=== PATIENT | female | born 1990 | race Caucasian/White ===

== ENCOUNTER → 2016-12-27 | Outpatient (CLI) | payer OTHER ==
[2016-12-27 19:06] LABS: Basophils % (A) 0 %; CH 28.6; CHCM 32.5; Eosinophils # (A) 0.2 k/uL (0-0.7); Eosinophils % (A) 3 %; HCT 37.9 % (34.0-46.0); HDW 2.41; HGB 12.5 gm/dL (11.4-16.0); Luc # (Auto) 0.04; Luc % (Auto) 1; Lymphocytes # (A) 1.8 k/uL (1.0-4.8); Lymphocytes % (A) 32 %; MCH 29.3 pg (25.0-35.0); MCHC 33.1 g/dL (31.0-37.0); MCV 88.5 fL (80.0-100.0); Mean Platelet Volume 7.4; Monocytes # (A) 0.2 k/uL (0-1.0); Monocytes % (A) 4 %; Neutrophils # (A) 3.5 k/uL (1.3-7.7); Neutrophils % (A) 61 %; RBC 4.29 m/uL (3.80-5.40); RDW 12.6 % (11.5-15.5); WBC 5.8 k/uL (3.8-10.6); WBC (Perox) 5.94
[2016-12-27 19:07] LABS: ALT 22 U/L (9-52); AST 22 U/L (14-36); Alkaline Phosphatase 54 U/L (38-126); Anion Gap 12 mmol/L; Blood Urea Nitrogen 8 mg/dL (7-17); Carbon Dioxide 25 mmol/L (22-30); Chloride 105 mmol/L (98-107); Cholesterol 126 mg/dL (<200); Glucose 75 mg/dL (74-99); HDL Cholesterol 47 mg/dL (40-60); Non-African American GFR(MDRD) >60 (>60 ml/min/1.73 sqM); Potassium 3.6 mmol/L (3.5-5.1); Sodium 142 mmol/L (137-145); Total Bilirubin 0.7 mg/dL (0.2-1.3); Total Protein 6.7 g/dL (6.3-8.2); Triglycerides 110 mg/dL (<150)
== END ==
LOC: MMGSC 14:11
PROVIDERS: ATTEND Family Medicine
DX: Z00.00 Encounter for general adult medical examination without abnormal findings (principal)
CPT/HCPCS: 36415; 80053; 80061; 84439; 84443; 85025

== ENCOUNTER → 2017-01-24 | Outpatient (CLI) | payer OTHER | END | disposition home or self-care (01) | LOC: MMGSC 15:01 | PROVIDERS: ATTEND Family Medicine | DX: R53.83 Other fatigue (principal) | CPT/HCPCS: 36415; 82306; 82607 ==

== ENCOUNTER 2017-07-12 15:14 | Emergency (ER) | payer OTHER ==
[2017-07-12] MEDS ORDERED: ONDANSETRON 4 MG/2 ML VIAL IVP STA (15:56)
[2017-07-12] MEDS ORDERED: SODIUM CHLORIDE 0.9% 1,000 ML IV STA (15:56)
[2017-07-12] MEDS ORDERED: FAMOTIDINE 20 MG/2 ML VIAL IV STA (15:56)
--- NOTE | 2017-07-12 16:09 | ED ---
General Adult HPI - General Chief complaint: Nausea/Vomiting/Diarrhea Stated complaint: Vomiting Time Seen by Provider: 07/12/17 15:38 Source: patient, RN notes reviewed Mode of arrival: ambulatory Limitations: no limitations - History of Present Illness Initial comments: 27-year-old female presents to the emergency department with a chief complaint of nausea and vomiting. Patient has had this nausea vomiting on and off for the last 5 days. She was seen here for initially she states that she continues to have nausea vomiting. She does suffer from IBS. She states she has abdominal pain. She states she cannot even tolerate water. She states she has lost 13 pounds in the last 5 days. Patient states that she's never had anything this severe before. She does have a follow-up with GI and Sunday but she states that she does not know if she can always has with this. Patient was concerned due to the fact that her symptoms have not changed back and have not gotten any better so she thought that she should be seen. Patient denies any recent fever, chills, shortness of breath, chest pain, back pain, numbness or tingling, dysuria or hematuria, constipation or diarrhea, headaches or visual changes, or any other current symptoms. - Related Data Home Medications Medication Instructions Recorded Confirmed Ibuprofen [Motrin] 600 mg PO Q8HR PRN 07/07/17 07/12/17 clonazePAM [KlonoPIN] 1 mg PO DAILY PRN 07/07/17 07/12/17 hydrOXYzine HCL [Atarax] 25 mg PO TID PRN 07/07/17 07/12/17 buPROPion HCL [Wellbutrin XL] 150 mg PO DAILY 07/12/17 07/12/17 Previous Rx's Medication Instructions Recorded Ondansetron Odt [Zofran ODT] 4 mg PO Q8HR PRN #20 tab 07/12/17 Allergies Allergy/AdvReac Type Severity Reaction Status Date / Time Penicillins Allergy Anaphylaxis Verified 07/12/17 15:32 Review of Systems ROS Statement: Those systems with pertinent positive or pertinent negative responses have been documented in the HPI. ROS Other: All systems not noted in ROS Statement are negative. Past Medical History Past Medical History: Fibromyalgia History of Any Multi-Drug Resistant Organisms: None Reported Additional Past Surgical History / Comment(s): urical cyst Past Psychological History: Anxiety, Depression, PTSD Smoking Status: Never smoker Past Alcohol Use History: None Reported Past Drug Use History: Marijuana General Exam - General Exam Comments Initial Comments: General: The patient is awake and alert, in no distress, and does not appear acutely ill. Eye: Pupils are equal, round and reactive to light, extra-ocular movements are intact; there is normal conjunctiva bilaterally. No signs of icterus. Ears, nose, mouth and throat: There are moist mucous membranes. Neck: The neck is supple, there is no tenderness. Cardiovascular: There is a regular rate and rhythm. No murmur, rub or gallop is appreciated. Respiratory: Lungs are clear to auscultation, respirations are non-labored, breath sounds are equal. No wheezes, stridor, rales, or rhonchi. Gastrointestinal: Soft, non-distended, diffusely Gen. tenderness of the abdomen without masses or organomegaly noted. There is no rebound or guarding present. No CVA tenderness. Bowel sounds are unremarkable. Back: There is no tenderness to palpation in the midline. There is no obvious deformity. No rashes noted. Musculoskeletal: Normal ROM, no tenderness, There is no pedal edema. There is no calf tenderness or swelling. Sensation intact. Pulses equal bilaterally 2+. Neurological: CN II-XII intact, There are no obvious motor or sensory deficits. Coordination appears grossly intact. Speech is normal. Skin: Skin is warm and dry and no rashes or lesions are noted. Psychiatric: Cooperative, appropriate mood & affect, normal judgment. Limitations: no limitations Course Vital Signs 07/12/17 15:17 Temperature 97.7 F Pulse Rate 97 Respiratory 20 Rate Blood Pressure 102/59 O2 Sat by Pulse 100 Oximetry Medical Decision Making - Medical Decision Making 27 yo female presents for N/V. This time lab work and imaging has been reviewed. At this time we discussed the patient Zofran for home. We discussed follow-up return parameters questions. Patient stated that she sugars have been answered. She'll be discharged home. - Lab Data Result diagrams: 07/12/17 16:19 07/12/17 16:19 Lab Results 07/12/17 07/12/17 07/12/17 Range/Units 16:16 16:16 16:19 WBC (3.8-10.6) k/uL RBC (3.80-5.40) m/uL Hgb (11.4-16.0) gm/dL Hct (34.0-46.0) % MCV (80.0-100.0) fL MCH (25.0-35.0) pg MCHC (31.0-37.0) g/dL RDW (11.5-15.5) % Plt Count (150-450) k/uL Neutrophils % % Lymphocytes % % Monocytes % % Eosinophils % % Basophils % % Neutrophils # (1.3-7.7) k/uL Lymphocytes # (1.0-4.8) k/uL Monocytes # (0-1.0) k/uL Eosinophils # (0-0.7) k/uL Basophils # (0-0.2) k/uL Sodium 142 (137-145) mmol/L Potassium 3.8 (3.5-5.1) mmol/L Chloride 104 (98-107) mmol/L Carbon Dioxide 25 (22-30) mmol/L Anion Gap 13 mmol/L BUN 12 (7-17) mg/dL Creatinine 0.75 (0.52-1.04) mg/dL Est GFR (MDRD) Af Amer >60 (>60 ml/min/1.73 sqM) Est GFR (MDRD) Non-Af >60 (>60 ml/min/1.73 sqM) Glucose 86 (74-99) mg/dL Calcium 9.9 (8.4-10.2) mg/dL Total Bilirubin 0.8 (0.2-1.3) mg/dL AST 30 (14-36) U/L ALT 42 (9-52) U/L Alkaline Phosphatase 55 (38-126) U/L Total Protein 8.7 H (6.3-8.2) g/dL Albumin 5.2 H (3.5-5.0) g/dL Amylase <30 L (30-110) U/L Lipase 74 (23-300) U/L Urine Color Yellow Urine Appearance Cloudy H (Clear) Urine pH 6.0 (5.0-8.0) Ur Specific [place] 1.016 (1.001-1.035) Urine Protein Trace H (Negative) Urine Glucose (UA) Negative (Negative) Urine Ketones 1+ H (Negative) Urine Blood Small H (Negative) Urine Nitrite Negative (Negative) Urine Bilirubin Negative (Negative) Urine Urobilinogen <2.0 (<2.0) mg/dL Ur Leukocyte Esterase Large H (Negative) Urine RBC 4 (0-5) /hpf Urine WBC 88 H (0-5) /hpf Ur Squamous Epith Cells 2 (0-4) /hpf Urine Bacteria Rare H (None) /hpf Urine Mucus Few H (None) /hpf Urine HCG, Qual Not Detected (Not Detectd) 07/12/17 Range/Units 16:19 WBC 6.8 (3.8-10.6) k/uL RBC 4.88 (3.80-5.40) m/uL Hgb 13.8 (11.4-16.0) gm/dL Hct 41.9 (34.0-46.0) % MCV 85.8 (80.0-100.0) fL MCH 28.3 (25.0-35.0) pg MCHC 33.0 (31.0-37.0) g/dL RDW 14.0 (11.5-15.5) % Plt Count 359 (150-450) k/uL Neutrophils % 61 % Lymphocytes % 32 % Monocytes % 4 % Eosinophils % 1 % Basophils % 1 % Neutrophils # 4.1 (1.3-7.7) k/uL Lymphocytes # 2.2 (1.0-4.8) k/uL Monocytes # 0.3 (0-1.0) k/uL Eosinophils # 0.1 (0-0.7) k/uL Basophils # 0.0 (0-0.2) k/uL Sodium (137-145) mmol/L Potassium (3.5-5.1) mmol/L Chloride (98-107) mmol/L Carbon Dioxide (22-30) mmol/L Anion Gap mmol/L BUN (7-17) mg/dL Creatinine (0.52-1.04) mg/dL Est GFR (MDRD) Af Amer (>60 ml/min/1.73 sqM) Est GFR (MDRD) Non-Af (>60 ml/min/1.73 sqM) Glucose (74-99) mg/dL Calcium (8.4-10.2) mg/dL Total Bilirubin (0.2-1.3) mg/dL AST (14-36) U/L ALT (9-52) U/L Alkaline Phosphatase (38-126) U/L Total Protein (6.3-8.2) g/dL Albumin (3.5-5.0) g/dL Amylase (30-110) U/L Lipase (23-300) U/L Urine Color Urine Appearance (Clear) Urine pH (5.0-8.0) Ur Specific [place] (1.001-1.035) Urine Protein (Negative) Urine Glucose (UA) (Negative) Urine Ketones (Negative) Urine Blood (Negative) Urine Nitrite (Negative) Urine Bilirubin (Negative) Urine Urobilinogen (<2.0) mg/dL Ur Leukocyte Esterase (Negative) Urine RBC (0-5) /hpf Urine WBC (0-5) /hpf Ur Squamous Epith Cells (0-4) /hpf Urine Bacteria (None) /hpf Urine Mucus (None) /hpf Urine HCG, Qual (Not Detectd) - Radiology Data Radiology results: report reviewed, image reviewed Disposition Clinical Impression: Abdominal pain, Nausea & vomiting Disposition: HOME SELF-CARE Condition: Stable Instructions: Abdominal Pain (ED) Additional Instructions: Please use medication as discussed. Please follow up with family doctor if symptoms have not improved over the next two days. Please return to the emergency room if your symptoms increase or worsen or for any other concerns. Please follow up as discussed. Prescriptions: Ondansetron Odt [Zofran ODT] 4 mg PO Q8HR PRN #20 tab PRN Reason: Nausea Referrals: Lyric Dong MD [Primary Care Provider] - 1-2 days Time of Disposition: 17:50
[2017-07-12 16:29] LABS: Appearance,Urine Cloudy (Clear); Bacteria,Urine Rare /hpf; Bilirubin,Urine Negative (Negative); Glucose,Urine (UA) Negative (Negative); Ketones,Urine 1+ (Negative); Leukocyte Esterase,Urine Large (Negative); Mucus,Urine Few /hpf; Nitrite,Urine Negative (Negative); Particle Count 5671; Protein,Urine Trace (Negative); RBC,Urine 4 /hpf (0-5); Specific Gravity,Urine 1.016 (1.001-1.035); Squamous Epithelial Cell,Urine 2 /hpf (0-4); UA Billing (MACRO vs. MICRO) MICRO; Urobilinogen,Urine <2.0 mg/dL (<2.0); WBC,Urine 88 /hpf (0-5)
[2017-07-12 16:36] LABS: Basophils % (A) 1 %; CHCM 32.8; Eosinophils # (A) 0.1 k/uL (0-0.7); Eosinophils % (A) 1 %; HCT 41.9 % (34.0-46.0); HDW 2.28; HGB 13.8 gm/dL (11.4-16.0); Luc # (Auto) 0.09; Luc % (Auto) 1; Lymphocytes # (A) 2.2 k/uL (1.0-4.8); Lymphocytes % (A) 32 %; MCH 28.3 pg (25.0-35.0); MCV 85.8 fL (80.0-100.0); Mean Platelet Volume 7.4; Monocytes # (A) 0.3 k/uL (0-1.0); Monocytes % (A) 4 %; Neutrophils # (A) 4.1 k/uL (1.3-7.7); Neutrophils % (A) 61 %; RBC 4.88 m/uL (3.80-5.40); WBC 6.8 k/uL (3.8-10.6); WBC (Perox) 6.81
[2017-07-12 16:59] LABS: ALT 42 U/L (9-52); AST 30 U/L (14-36); Alkaline Phosphatase 55 U/L (38-126); Amylase <30 U/L (30-110); Anion Gap 13 mmol/L; Blood Urea Nitrogen 12 mg/dL (7-17); Calcium 9.9 mg/dL (8.4-10.2); Carbon Dioxide 25 mmol/L (22-30); Chloride 104 mmol/L (98-107); Glucose 86 mg/dL (74-99); Non-African American GFR(MDRD) >60 (>60 ml/min/1.73 sqM); Potassium 3.8 mmol/L (3.5-5.1); Sodium 142 mmol/L (137-145); Total Bilirubin 0.8 mg/dL (0.2-1.3); Total Protein 8.7 g/dL (6.3-8.2)
--- NOTE | 2017-07-12 17:08 | US ---
EXAMINATION TYPE: US gallbladder DATE OF EXAM: 07/12/2017 COMPARISON: NONE CLINICAL HISTORY: Pain. vomiting and abd pain EXAM MEASUREMENTS: Liver Length: 12.3 cm Gallbladder Wall: 0.2 cm CBD: 0.3 cm Right Kidney: 10.0 x 4.4 x 3.9 cm Pancreas: tail obscured by bowel gas Liver: 1.9cm hyperechoic lesion left lobe probable hemangioma Gallbladder: wnl Evidence for sonographic De Los Santos's sign: no CBD: wnl Right Kidney: wnl IMPRESSION: There is evidence of a hemangioma in the left lobe of the liver. No gallstones or dilated ducts.
[2017-07-12 18:28] VITALS: BP 155/83; PULSE 90; RESP 16; TEMP 97.8
== END 2017-07-12 18:39 | disposition home or self-care (01) ==
LOC: EC 15:14
DX: R10.9 Unspecified abdominal pain (principal); R11.2 Nausea with vomiting, unspecified; F32.9 Major depressive disorder, single episode, unspecified; Z79.899 Other long term (current) drug therapy; Z88.0 Allergy status to penicillin
CPT/HCPCS: 99284; 96374; 96375; 36415; 80053; 82150; 83690; 85025; 81001; 81025; 76705; J2405

== ENCOUNTER 2017-08-01 08:08 | Day surgery (SDC) | payer OTHER ==
[2017-07-31 10:58] VITALS: BMI 29.5
[~2017-08-01 08:08] MED LIST: LACTATED RINGERS 1,000 ML IV SCH; LIDOCAINE 1% 20 ML VIAL (10MG/ML) FOR IV START INTRADERMA PRN
[2017-08-01 08:51] VITALS: RESP 16; TEMP 98.2
[2017-08-01] MEDS ORDERED: LIDOCAINE 1% INJ 10MG/ML (20 ML MDV) ONE (09:04)
[2017-08-01] MEDS ORDERED: PROPOFOL 10 MG/ML 20 ML VIAL IV ONE (09:04)
--- NOTE | 2017-08-01 09:21 | P.PCN ---
Date of Procedure: 08/01/17 Procedure(s) Performed: Brief history: Patient is a pleasant 27-year-old white female,scheduled for an elective upper endoscopy as well as colonoscopy as a part of evaluation of abdominal pain, abdominal distention, alternating diarrhea and constipation with intermittent rectal bleeding for the last 2 months duration. She lost 15 pounds since onset of the symptoms. Procedure performed: Esophagogastroduodenoscopy with biopsy Colonoscopy with biopsy Preoperative diagnosis: abdominal pain/abdominal distention Change in bowel habits and intermittent rectal bleeding Anesthesia: MAC Procedure: After informed consent was obtained from the patient was brought into the endoscopy unit and IV sedation was administered by anesthesia under continuous monitoring. Initially upper endoscopy was done. The Olympus GF 160 video endoscope was inserted inserted into the mouth and esophagus intubated without any difficulty and was gradually advanced into the stomach and duodenum and carefully examined. The bulb and second part of the duodenum appeared normal.biopsies were done from the duodenum to rule out celiac disease. The scope was then withdrawn into the stomach adequately insufflated with air and upon careful examination the antrum had mild patchy areas of erythema and biopsies were done from this area. The body, cardia and fundus appeared normal. The scope was then withdrawn into the esophagus. The GE junction was located at 40 cm to the incisors. It appeared regular with no erythema erosions or ulcerations. Rest of the esophagus appeared normal. Patient tolerated the procedure well. At this time the patient continued to remain sedation. Initial digital rectal examination was normal. Olympus CF 160 video colonoscope was then inserted into the rectum and gradually advanced to the cecum without any difficulty. Careful examination was performed as the scope was gradually being withdrawn. The prep was excellent. Terminal ileum was intubated and 20 cm visualized and appeared normal. The cecum, ascending colon, transverse colon, descending colon , sigmoid colon and rectum appeared normal. random biopsies were done from ascending and descending colon to rule out microscopic/collagenous colitis. Retroflexion was performed in the rectum and no lesions were noted. Patient tolerated the procedure well. Impression: 1.Upper endoscopy revealed minimal antral gastritis but no evidence of esophagitis or peptic ulcer 2.Colonoscopy was essentially within normal limits with no evidence of colitis or colorectal neoplasia Recommendations: Findings of this examination were discussed with the patient as well as her family. She was advised to follow with the biopsy results. She will be seen in office in 2-3 weeks.
[2017-08-01 09:49] VITALS: BP 111/72; PULSE 79
== END 2017-08-01 10:03 | disposition home or self-care (01) ==
LOC: ORWHC2ENDO 08:08
PROVIDERS: ATTEND Internal Medicine Gastroenterology
DX: R19.7 Diarrhea, unspecified (principal); K62.5 Hemorrhage of anus and rectum; K29.50 Unspecified chronic gastritis without bleeding; K59.00 Constipation, unspecified; K21.9 Gastro-esophageal reflux disease without esophagitis; Z88.0 Allergy status to penicillin; Z79.899 Other long term (current) drug therapy
CPT/HCPCS: 43239; 45380; 81025; 88305; 88342; J2001; J2704

== ENCOUNTER → 2017-08-03 | Outpatient (CLI) | payer OTHER | END | disposition home or self-care (01) | LOC: MMGSC 16:09 | PROVIDERS: ATTEND Family Medicine | DX: R30.0 Dysuria (principal) | CPT/HCPCS: 87086 ==

== ENCOUNTER 2017-11-10 21:37 | Emergency (ER) | payer OTHER ==
[2017-11-10 21:51] VITALS: RESP 18
[2017-11-10] MEDS ORDERED: TOPICAL SKIN ADHESIVE 1 EACH AMP TOPICAL ONE (22:21)
[2017-11-10] MEDS ORDERED: ONDANSETRON ODT 4 MG TAB PO STA (23:15)
--- NOTE | 2017-11-10 23:18 | ED ---
General Adult HPI - General Chief complaint: Psychiatric Symptoms Stated complaint: Suicidal Time Seen by Provider: 11/10/17 21:40 Source: EMS, RN notes reviewed, old records reviewed Mode of arrival: EMS Limitations: no limitations - History of Present Illness Initial comments: This is a 27-year-old female to ER for evaluation today. Patient's presenting for evaluation regards to suicidal thoughts and ideation. Patient typical eyeglasses multiple cuts over her body. Patient states she had any difficulty with boyfriend tonight and became very suicidal and said. She has positive EtOH , no prior history of similar complaint - Related Data Home Medications Medication Instructions Recorded Confirmed hydrOXYzine HCL [Atarax] 25 mg PO TID PRN 07/07/17 08/01/17 buPROPion HCL [Wellbutrin XL] 150 mg PO DAILY 07/12/17 08/01/17 Allergies Allergy/AdvReac Type Severity Reaction Status Date / Time Penicillins Allergy Anaphylaxis Verified 08/01/17 08:55 Review of Systems ROS Statement: Those systems with pertinent positive or pertinent negative responses have been documented in the HPI. ROS Other: All systems not noted in ROS Statement are negative. Past Medical History Past Medical History: Fibromyalgia Additional Past Medical History / Comment(s): STATES HAVING BLOATING, CRAMPS DIARRHEA AND RECTAL BLEEDING., FREQUENT UTI'S. History of Any Multi-Drug Resistant Organisms: None Reported Additional Past Surgical History / Comment(s): EXPLORATORY WITH REMOVAL OF URACHAL CYST. (JANUARY 2015) Past Anesthesia/Blood Transfusion Reactions: No Reported Reaction, Motion Sickness Past Psychological History: Anxiety, Depression, PTSD Smoking Status: Never smoker Past Alcohol Use History: None Reported Past Drug Use History: Marijuana - Past Family History Mother Family Medical History: No Reported History Additional Family Medical History / Comment(s): GRANDFATHER= COLON CANCER General Exam - General Exam Comments Initial Comments: Multiple small lacerations, they are located on hands, forearms, leg Limitations: no limitations General appearance: alert, in no apparent distress Head exam: Present: atraumatic, normocephalic, normal inspection Eye exam: Present: normal appearance, PERRL, EOMI. Absent: scleral icterus, conjunctival injection, periorbital swelling ENT exam: Present: normal exam, mucous membranes moist Neck exam: Present: normal inspection. Absent: tenderness, meningismus, lymphadenopathy Respiratory exam: Present: normal lung sounds bilaterally. Absent: respiratory distress, wheezes, rales, rhonchi, stridor Cardiovascular Exam: Present: regular rate, normal rhythm, normal heart sounds. Absent: systolic murmur, diastolic murmur, rubs, gallop, clicks GI/Abdominal exam: Present: soft, normal bowel sounds. Absent: distended, tenderness, guarding, rebound, rigid Extremities exam: Present: normal inspection, full ROM, normal capillary refill. Absent: tenderness, pedal edema, joint swelling, calf tenderness Back exam: Present: normal inspection Neurological exam: Present: alert, oriented X3, CN II-XII intact Psychiatric exam: Present: normal affect, normal mood Skin exam: Present: warm, dry, intact, normal color. Absent: rash Course Vital Signs 11/10/17 11/11/17 11/11/17 21:41 00:24 01:11 Temperature 98.9 F Pulse Rate 84 78 74 Respiratory 18 18 18 Rate Blood Pressure 120/68 118/59 118/59 O2 Sat by Pulse 98 96 100 Oximetry 11/11/17 03:41 Temperature 97.7 F Pulse Rate 72 Respiratory 18 Rate Blood Pressure 119/69 O2 Sat by Pulse 98 Oximetry - Reevaluation(s) Reevaluation #1: 11/10/17 23:18 No need for laceration repair, patient's lacerations are cleaned Reevaluation #2: 11/10/17 23:18 Patient is medically clear for psychiatric evaluation Medical Decision Making - Medical Decision Making 27 female the ER for evaluation by psychiatry, patient seen and evaluated with psychiatry patient can be discharged home Disposition Clinical Impression: Acute anxiety, Alcohol abuse Disposition: HOME SELF-CARE Condition: Good Instructions: Anxiety (ED) Referrals: Lyric Dong MD [Primary Care Provider] - 1-2 days
[2017-11-11] MEDS ORDERED: LORazepam 1 MG TAB PO STA (00:12)
[2017-11-11] MEDS ORDERED: LORazepam 2 MG/ML INJ IM STA (00:12)
--- NOTE | 2017-11-11 01:37 | CT ---
EXAMINATION TYPE: CT brain wo con DATE OF EXAM: 11/11/2017 COMPARISON: NONE HISTORY: shaking, vomiting headache CT DLP: 1014.40 mGycm. Automated Exposure Control for Dose Reduction was Utilized. TECHNIQUE: CT scan of the head is performed without contrast. FINDINGS: Ventricles and sulci appear normal. There is no mass effect nor midline shift. There is n o sign of intracranial hemorrhage. The calvarium appears normal. There is mild mucosal thickening in the ethmoid sinuses. The cerebellar tonsils project slightly into the foramen magnum. CONCLUSION: No acute intracranial abnormality. Mild Chiari malformation of the cerebellum. Mild ethmoid sinusitis .
[2017-11-11 03:43] VITALS: BP 119/69; PULSE 72; TEMP 97.7
== END 2017-11-11 03:54 | disposition home or self-care (01) ==
LOC: EC 21:37
DX: S61.412A Laceration without foreign body of left hand, initial encounter (principal); S61.411A Laceration without foreign body of right hand, initial encounter; S51.812A Laceration without foreign body of left forearm, initial encounter; S51.811A Laceration without foreign body of right forearm, initial encounter; S81.819A Laceration without foreign body, unspecified lower leg, initial encounter; F41.9 Anxiety disorder, unspecified; F10.10 Alcohol abuse, uncomplicated; F43.10 Post-traumatic stress disorder, unspecified; F32.9 Major depressive disorder, single episode, unspecified; Z79.899 Other long term (current) drug therapy; Z88.0 Allergy status to penicillin; W25.XXXA Contact with sharp glass, initial encounter; Y92.89 Other specified places as the place of occurrence of the external cause
CPT/HCPCS: 82075; 70450; 99285; 96372; J2060

== ENCOUNTER 2019-09-28 13:38 | Emergency (ER) | payer OTHER ==
[2019-09-28 13:57] VITALS: BP 122/73; PULSE 87; RESP 18; TEMP 98.5
[2019-09-28 15:13] LABS: Basophils # (A) 0.1 k/uL (0-0.2); Basophils % (A) 1 %; Eosinophils # (A) 0.1 k/uL (0-0.7); Eosinophils % (A) 1 %; HCT 38.1 % (34.0-46.0); HGB 12.4 gm/dL (11.4-16.0); Lymphocytes # (A) 1.7 k/uL (1.0-4.8); Lymphocytes % (A) 28 %; MCH 28.6 pg (25.0-35.0); MCHC 32.7 g/dL (31.0-37.0); MCV 87.5 fL (80.0-100.0); Mean Platelet Volume 7.5; Monocytes # (A) 0.3 k/uL (0-1.0); Monocytes % (A) 5 %; Neutrophils # (A) 3.9 k/uL (1.3-7.7); Neutrophils % (A) 63 %; Platelet Count 261 k/uL (150-450); RBC 4.35 m/uL (3.80-5.40); RDW 12.4 % (11.5-15.5); WBC 6.2 k/uL (3.8-10.6)
[2019-09-28 15:18] LABS: Appearance,Urine Clear (Clear); Bacteria,Urine Rare /hpf; Bilirubin,Urine Negative (Negative); Blood,Urine Moderate (Negative); Color,Urine Yellow; Glucose,Urine (UA) Negative (Negative); Ketones,Urine Trace (Negative); Leukocyte Esterase,Urine Negative (Negative); Mucus,Urine Moderate /hpf; Nitrite,Urine Negative (Negative); PH, Urine 6.5 (5.0-8.0); Protein,Urine 1+ (Negative); RBC,Urine 8 /hpf (0-5); Specific Gravity,Urine 1.029 (1.001-1.035); Squamous Epithelial Cell,Urine 1 /hpf (0-4); Urobilinogen,Urine <2.0 mg/dL (<2.0); WBC,Urine 2 /hpf (0-5)
--- NOTE | 2019-09-28 15:19 | ED ---
Recheck HPI - General Chief Complaint: Recheck/Abnormal Lab/Rx Stated Complaint: Fibromyalgia/need med refill Time Seen by Provider: 09/28/19 14:07 Source: patient Mode of arrival: ambulatory Limitations: no limitations - History of Present Illness Initial Comments: 29-year-old female presenting for multiple complaints. Patient states that she is out of her Seroquel which she has been increasing the amount she has been taking because of stressful situations. Patient states that she has history of PTSD and depression. She states that she has had increasing suicidal ideations wtih no plan-she states since she was in the service these have been chronic thoughts. Denies homicidal ideation. Patient states she feels overall very stressed out she states is making her nauseated and had vomiting she states this typically happens when she has increased life stressors. Patient denies any physical abuse. She states she wants something for the nausea. Denie , stating that she recently began her period and she feels this is compounding her anxiety and stress because she has PMDD. Ptient denies abdominal pain, chest pain, SOB. Patient denies dysuria, urgency, frequency. Patient denies attempt of suicide. Patient states she needed a medications refill and thats why she presented to the ER. - Related Data Home Medications Medication Instructions Recorded Confirmed hydrOXYzine HCL [Atarax] 25 mg PO TID PRN 07/07/17 08/01/17 buPROPion HCL [Wellbutrin XL] 150 mg PO DAILY 07/12/17 08/01/17 Allergies Allergy/AdvReac Type Severity Reaction Status Date / Time Penicillins Allergy Anaphylaxis Verified 09/28/19 13:57 Review of Systems ROS Statement: Those systems with pertinent positive or pertinent negative responses have been documented in the HPI. ROS Other: All systems not noted in ROS Statement are negative. Past Medical History Past Medical History: Fibromyalgia Additional Past Medical History / Comment(s): STATES HAVING BLOATING, CRAMPS DIARRHEA AND RECTAL BLEEDING., FREQUENT UTI'S. History of Any Multi-Drug Resistant Organisms: None Reported Additional Past Surgical History / Comment(s): EXPLORATORY WITH REMOVAL OF URACHAL CYST. (JANUARY 2015) Past Anesthesia/Blood Transfusion Reactions: No Reported Reaction, Motion Sickness Past Psychological History: Anxiety, Depression, PTSD Smoking Status: Current every day smoker Past Alcohol Use History: None Reported Past Drug Use History: Marijuana - Past Family History Mother Family Medical History: No Reported History Additional Family Medical History / Comment(s): GRANDFATHER= COLON CANCER General Exam - General Exam Comments Initial Comments: General: The patient is awake and alert, in no distress Eye: +3 mm pupils are equal, round and reactive to light, extra-ocular movements are intact. No nystagmus. There is normal conjunctiva bilaterally. No signs of icterus. Ears, nose, mouth and throat: There are moist mucous membranes and no oral lesions. Neck: The neck is supple, there is no tenderness or JVD. Cardiovascular: There is a regular rate and rhythm. No murmur, rub or gallop is appreciated. Respiratory: Lungs are clear to auscultation, respirations are non-labored, breath sounds are equal. No wheezes, stridor, rales, or rhonchi. Gastrointestinal: Soft, non-distended, non-tender abdomen without masses or organomegaly noted. There is no rebound or guarding present. Musculoskeletal: Normal ROM, no tenderness. Strength 5/5. Sensation intact. Radial pulses equal bilaterally 2+. Neurological: A&O x 3. CN II-XII intact grossly, There are no obvious motor or sensory deficits. Coordination appears grossly intact. Speech is normal. Skin: Skin is warm and dry and no rashes or lesions are noted. Psychiatric: Rapid speech, flat affect Limitations: no limitations Course Vital Signs 09/28/19 13:53 Temperature 98.5 F Pulse Rate 87 Respiratory 18 Rate Blood Pressure 122/73 O2 Sat by Pulse 99 Oximetry Medical Decision Making - Medical Decision Making 29-year-old female presenting for medication refill of Seroquel. Patient states she was prescribed the non-extended release formula. Patient states she needs extended release. She also noted in history taking that she had suicidal ideation she states are chronic. Patient is was evaluated urinalysis and basic lab study patient was medically clear for EPS evaluation who recommended discharge. Patient states she is comfortable discharge she was provided resources for psychiatric services. Patient denies any current suicidal ideations. Patient was instructed to f/u with PCP for medication refills. Patient discharged with return parameters, sfety plan and resources. - Lab Data Result diagrams: 09/28/19 15:00 09/28/19 15:00 Lab Results 01/26/20 01/26/20 01/26/20 Range/Units 15:00 15:00 15:00 WBC 6.2 (3.8-10.6) k/uL RBC 4.35 (3.80-5.40) m/uL Hgb 12.4 (11.4-16.0) gm/dL Hct 38.1 (34.0-46.0) % MCV 87.5 (80.0-100.0) fL MCH 28.6 (25.0-35.0) pg MCHC 32.7 (31.0-37.0) g/dL RDW 12.4 (11.5-15.5) % Plt Count 261 (150-450) k/uL Neutrophils % 63 % Lymphocytes % 28 % Monocytes % 5 % Eosinophils % 1 % Basophils % 1 % Neutrophils # 3.9 (1.3-7.7) k/uL Lymphocytes # 1.7 (1.0-4.8) k/uL Monocytes # 0.3 (0-1.0) k/uL Eosinophils # 0.1 (0-0.7) k/uL Basophils # 0.1 (0-0.2) k/uL Sodium 141 (137-145) mmol/L Potassium 4.2 (3.5-5.1) mmol/L Chloride 106 (98-107) mmol/L Carbon Dioxide 26 (22-30) mmol/L Anion Gap 9 mmol/L BUN 14 (7-17) mg/dL Creatinine 0.65 (0.52-1.04) mg/dL Est GFR (CKD-EPI)AfAm >90 (>60 ml/min/1.73 sqM) Est GFR (CKD-EPI)NonAf >90 (>60 ml/min/1.73 sqM) Glucose 95 (74-99) mg/dL Calcium 9.4 (8.4-10.2) mg/dL Total Bilirubin 0.9 (0.2-1.3) mg/dL AST 27 (14-36) U/L ALT 20 (4-34) U/L Alkaline Phosphatase 61 (38-126) U/L Total Protein 7.3 (6.3-8.2) g/dL Albumin 4.6 (3.5-5.0) g/dL Urine Color Urine Appearance (Clear) Urine pH (5.0-8.0) Ur Specific [place] (1.001-1.035) Urine Protein (Negative) Urine Glucose (UA) (Negative) Urine Ketones (Negative) Urine Blood (Negative) Urine Nitrite (Negative) Urine Bilirubin (Negative) Urine Urobilinogen (<2.0) mg/dL Ur Leukocyte Esterase (Negative) Urine RBC (0-5) /hpf Urine WBC (0-5) /hpf Ur Squamous Epith Cells (0-4) /hpf Urine Bacteria (None) /hpf Urine Mucus (None) /hpf Urine HCG, Qual Not Detected (Not Detectd) Urine Opiates Screen (NotDetected) Ur Oxycodone Screen (NotDetected) Urine Methadone Screen (NotDetected) Ur Propoxyphene Screen (NotDetected) Ur Barbiturates Screen (NotDetected) U Tricyclic Antidepress (NotDetected) Ur Phencyclidine Scrn (NotDetected) Ur Amphetamines Screen (NotDetected) U Methamphetamines Scrn (NotDetected) U Benzodiazepines Scrn (NotDetected) Urine Cocaine Screen (NotDetected) U Marijuana (THC) Screen (NotDetected) 09/28/19 Range/Units 15:00 WBC (3.8-10.6) k/uL RBC (3.80-5.40) m/uL Hgb (11.4-16.0) gm/dL Hct (34.0-46.0) % MCV (80.0-100.0) fL MCH (25.0-35.0) pg MCHC (31.0-37.0) g/dL RDW (11.5-15.5) % Plt Count (150-450) k/uL Neutrophils % % Lymphocytes % % Monocytes % % Eosinophils % % Basophils % % Neutrophils # (1.3-7.7) k/uL Lymphocytes # (1.0-4.8) k/uL Monocytes # (0-1.0) k/uL Eosinophils # (0-0.7) k/uL Basophils # (0-0.2) k/uL Sodium (137-145) mmol/L Potassium (3.5-5.1) mmol/L Chloride (98-107) mmol/L Carbon Dioxide (22-30) mmol/L Anion Gap mmol/L BUN (7-17) mg/dL Creatinine (0.52-1.04) mg/dL Est GFR (CKD-EPI)AfAm (>60 ml/min/1.73 sqM) Est GFR (CKD-EPI)NonAf (>60 ml/min/1.73 sqM) Glucose (74-99) mg/dL Calcium (8.4-10.2) mg/dL Total Bilirubin (0.2-1.3) mg/dL AST (14-36) U/L ALT (4-34) U/L Alkaline Phosphatase (38-126) U/L Total Protein (6.3-8.2) g/dL Albumin (3.5-5.0) g/dL Urine Color Yellow Urine Appearance Clear (Clear) Urine pH 6.5 (5.0-8.0) Ur Specific [place] 1.029 (1.001-1.035) Urine Protein 1+ H (Negative) Urine Glucose (UA) Negative (Negative) Urine Ketones Trace H (Negative) Urine Blood Moderate H (Negative) Urine Nitrite Negative (Negative) Urine Bilirubin Negative (Negative) Urine Urobilinogen <2.0 (<2.0) mg/dL Ur Leukocyte Esterase Negative (Negative) Urine RBC 8 H (0-5) /hpf Urine WBC 2 (0-5) /hpf Ur Squamous Epith Cells 1 (0-4) /hpf Urine Bacteria Rare H (None) /hpf Urine Mucus Moderate H (None) /hpf Urine HCG, Qual (Not Detectd) Urine Opiates Screen Not Detected (NotDetected) Ur Oxycodone Screen Not Detected (NotDetected) Urine Methadone Screen Not Detected (NotDetected) Ur Propoxyphene Screen Not Detected (NotDetected) Ur Barbiturates Screen Not Detected (NotDetected) U Tricyclic Antidepress Detected H (NotDetected) Ur Phencyclidine Scrn Not Detected (NotDetected) Ur Amphetamines Screen Not Detected (NotDetected) U Methamphetamines Scrn Not Detected (NotDetected) U Benzodiazepines Scrn Not Detected (NotDetected) Urine Cocaine Screen Not Detected (NotDetected) U Marijuana (THC) Screen Detected H (NotDetected) Disposition Clinical Impression: Chronic depression, History of posttraumatic stress disorder (PTSD), Medication refill Disposition: HOME SELF-CARE Condition: Good Instructions (If sedation given, give patient instructions): Depression (ED), Help Prevent Suicide (ED) Additional Instructions: Please use medication as discussed. Please follow-up with family doctor in the next 2 days. Please return to emergency room if the symptoms increase or worsen or for any other concerns. Is patient prescribed a controlled substance at d/c from ED?: No Referrals: Lyric Dong MD [Primary Care Provider] - 1-2 days Time of Disposition: 16:49
[2019-09-28 15:22] LABS: ALT 20 U/L (4-34); AST 27 U/L (14-36); African American GFR (CKD) >90 (>60 ml/min/1.73 sqM); Albumin 4.6 g/dL (3.5-5.0); Alkaline Phosphatase 61 U/L (38-126); Anion Gap 9 mmol/L; Blood Urea Nitrogen 14 mg/dL (7-17); Calcium 9.4 mg/dL (8.4-10.2); Carbon Dioxide 26 mmol/L (22-30); Chloride 106 mmol/L (98-107); Glucose 95 mg/dL (74-99); Non-African American GFR(CKD) >90 (>60 ml/min/1.73 sqM); Potassium 4.2 mmol/L (3.5-5.1); Sodium 141 mmol/L (137-145); Total Bilirubin 0.9 mg/dL (0.2-1.3); Total Protein 7.3 g/dL (6.3-8.2)
[2019-09-28 15:44] LABS: Amphetamine Screen,Urine Not Detected (NotDetected); Barbiturate Screen,Urine Not Detected (NotDetected); Benzodiazepines Screen,Urine Not Detected (NotDetected); Cocaine Screen,Urine Not Detected (NotDetected); Methadone Screen, Urine Not Detected (NotDetected); Opiate Screen,Urine Not Detected (NotDetected); Oxycodone Screen, Urine Not Detected (NotDetected); Phencyclidine Screen,Urine Not Detected (NotDetected); Tricyclic Antidepressant,Urine Detected (NotDetected); Urn Cannabinoid Scrn Detected (NotDetected)
== END 2019-09-28 17:03 | disposition home or self-care (01) ==
LOC: EC 13:38
DX: F32.9 Major depressive disorder, single episode, unspecified (principal); F17.200 Nicotine dependence, unspecified, uncomplicated; Z76.0 Encounter for issue of repeat prescription; Z79.899 Other long term (current) drug therapy; Z88.0 Allergy status to penicillin; Z86.59 Personal history of other mental and behavioral disorders
CPT/HCPCS: 36415; 80053; 80306; 81001; 81025; 82075; 85025; 99284

== ENCOUNTER → 2020-09-08 | Outpatient (CLI) | payer OTHER ==
--- NOTE | 2020-09-08 15:54 | US ---
EXAMINATION TYPE: Transabdominal DATE OF EXAM: 09/08/2020 3:43 PM COMPARISON: NONE CLINICAL HISTORY: Z36 Encounter for screening of mother. Dates positive hCG test. EXAM PERFORMED: Transabdominal (TA) EXAM MEASUREMENTS: GESTATIONAL AGE / DATING Physician Established: Not yet established ( Dates by LMP: 06/28/2020 (10 weeks/2 days) EDC: 04/04/2021 Dates by First Scan: No previous this is first scan Dates by Current Scan for: (9 weeks/3 days) EDC: 04/10/2021 MATERNAL ANATOMY Uterus: 12.2 x 5.0 x 7.5 cm Right Ovary: 2.8 x 2.0 x 1.7 cm Left Ovary: 3.1 x 2.1 x 2.2 cm Post CDS / Adnexa: wnl Presence of free fluid: wnl Presence of corpus luteal cyst: no Presence of subchorionic bleed: no GESTATION / SURVEY CRL: 2.63 cm (9 weeks/3 days) Yolk Sac (normal less than 6mm): 5 mm Heart Rate: 179 bpm Rhythm: Normal IUP: Viable IUP Beta HcG (if available): Not available at this time Single live intrauterine gestation as gestational sac, yolk sac, and pole are confirmed. No ana cristina e fluid in pelvic cul-de-sac. Both ovaries are present. No suspicious extraovarian adnexal lesion. IMPRESSION: Single live intrauterine gestation, mean crown-rump length 2.6 cm corresponding to 9 week 3 day old fetus.
[2020-09-08 16:08] LABS: HCT 33.4 % (34.0-46.0); HGB 11.7 gm/dL (11.4-16.0); MCH 30.5 pg (25.0-35.0); MCV 87.3 fL (80.0-100.0); Mean Platelet Volume 7.7; Platelet Count 295 k/uL (150-450); RBC 3.83 m/uL (3.80-5.40)
[2020-09-08 16:15] LABS: African American GFR (CKD) >90 (>60 ml/min/1.73 sqM); Glucose 78 mg/dL (74-99); Non-African American GFR(CKD) >90 (>60 ml/min/1.73 sqM)
[2020-09-09 01:12] LABS: HIV 2 AB Non-Reactive (Non-Reactive); HIV AB P24 Non-Reactive (Non-Reactive); HIV P24 AG Non-Reactive (Non-Reactive)
== END | disposition home or self-care (01) ==
LOC: RADUSWWP 15:24
PROVIDERS: ATTEND Obstetrics & Gynecology
DX: Z36.89 Encounter for other specified antenatal screening (principal); O26.811 Pregnancy related exhaustion and fatigue, first trimester; Z3A.09 9 weeks gestation of pregnancy
CPT/HCPCS: 36415; 76801; 82565; 82947; 85027; 86850; 86900; 86901; 87390

== ENCOUNTER → 2020-11-11 | Outpatient (CLI) | payer OTHER ==
--- NOTE | 2020-11-11 14:53 | US ---
EXAMINATION TYPE: US OB anatomy transabd DATE OF EXAM: 11/11/2020 COMPARISON: 09/08/2020 HISTORY: O36.62X0 Large for dates 2nd trimester TECHNIQUE: Transabdominal (TA) EXAM MEASUREMENTS: GESTATIONAL AGE / DATING Physician Established: (19 weeks/3 days) EDC: 04/04/2021 Dates by LMP: (19 weeks/3 days) EDC: 04/04/2021 Dates by First Scan: (18 weeks/4 days) EDC: 04/10/2021 Dates by Current Scan for: (18 weeks/6 days) EDC: 04/08/2021 SURVEY IUP: Single PLACENTA: Anterior PREVIA: No previa KWAME: 13.0 cm Normal CERVICAL LENGTH (transabdominal: norm > 3.0cm): 3.8 cm BIOMETRY PRESENTATION: Breech LIE: Longitudinal BPD: 4.3 cm 19 weeks / 0 days HC: 16.3 cm 19 weeks / 1 days AC: 12.6 cm 18 weeks / 2 days FL: 2.8 cm 18 weeks / 4 days ESTIMATED WEIGHT IN GRAMS: 241 grams ESTIMATED WEIGHT IN LBS/OZ: 0 lbs. 9 oz. WEIGHT PERCENTAGE BASED ON ESTABLISHED DATE: 7 % HC/AC: 1.29 Abnormal FL/AC: 22% HEART RATE: 153 bpm RHYTHM: Normal ANATOMY SEEN (within normal limits): * Lateral Vent (< 1 cm) 0.8 cm * Cisterna Magna (< 1.1 cm) 0.4 cm * Nuchal Fold (< 0.6 cm) 0.4 cm * Cerebellum (varies with age) 1.9 cm Choroid Plexus (bilateral) Midline Falx Cavus Septi Pellucidi Four Chamber Heart Outflow tracts: LVOT/RVOT Stomach Situs Nose / Lips Diaphragm Kidneys (bilateral) Bladder Cord Insert Three Vessel Cord Arms (bilateral) Legs (bilateral) ANATOMY NOT SEEN: Longitudinal Spine Transverse Spine Viable single IUP measuring 18 weeks 6 days with a heart rate of 153bpm and an estimated delivery hyun e of 04/08/2021. Patient being made an OB Callback to return for anatomy not seen on today's exam. IMPRESSION: Viable intrauterine of 18 weeks 6 days with a heart rate of 153 bpm. The patient should ret urn for areas of anatomy that were not visualized on today's exam due to early gestational age.
== END ==
LOC: RADUSWWP 13:25
PROVIDERS: ATTEND Obstetrics & Gynecology
DX: O36.62X0 Maternal care for excessive fetal growth, second trimester, not applicable or unspecified (principal); Z3A.18 18 weeks gestation of pregnancy
CPT/HCPCS: 76811

== ENCOUNTER → 2020-12-06 | Outpatient (CLI) | payer OTHER ==
--- NOTE | 2020-12-06 15:50 | US ---
EXAMINATION TYPE: US OB Call Back DATE OF EXAM: 12/06/2020 COMPARISON: Original survey 11/11/[address] 07/07/2017. CLINICAL HISTORY: 30-year-old female OB CALL BACK. Spine images needed. TECHNIQUE: Multiple transabdominal sonographic images were obtained. FINDINGS: GESTATIONAL AGE / DATING Dates by Initial Survey Scan: (23 weeks/0 days) EDC: 04/04/2021 HEART RATE: 134 bpm RHYTHM: Normal ANATOMY SEEN (second anatomic survey look): Longitudinal Spine: wnl Transverse Spine: wnl [place] notes: After multiple attempts and having mother roll, move around room, etc, images of f etal spine were acquired Some of the survey images of 11/11/2020 are reviewed. There is a rounded masslike area that seem s to be located along the lower uterine segment measuring 4.2 x 3.8 x 3.3 cm. Review of the patient's 07/07/2017 CT shows an enhancing round 1.4 cm lesion along the left lower uterine segment. An enlargi ng fibroid is suspected. One-month follow-up recommended to reassess. IMPRESSION: 1. Rescan from the patient's 11/11/2020 survey shows a normal spine. 2. A 4.2 cm round mass along the lower uterine segment suspected to represent a fibroid. Patient's 17 CT showed a 1.4 cm enhancing lesion, likely a fibroid along the left lower uterine segment. Four-w [place] follow-up ultrasound recommended to reassess any potential further growth of the suspected lower uterine segment fibroid.
== END | disposition home or self-care (01) ==
LOC: RADUSWWP 14:45
PROVIDERS: ATTEND Obstetrics & Gynecology
DX: Z53.9 Procedure and treatment not carried out, unspecified reason (principal)

== ENCOUNTER → 2021-03-11 | Outpatient (CLI) | payer OTHER | END | disposition home or self-care (01) ==

== ENCOUNTER 2021-04-03 15:55 | Inpatient (IN) | payer OTHER ==
[2021-04-03] MEDS ORDERED: TERBUTALINE 1 MG/ML VIAL SQ PRN (16:12)
[2021-04-03] MEDS ORDERED: METHYLERGONOVINE 0.2 MG/ML 1 ML AMP IM PRN (16:12)
[2021-04-03] MEDS ORDERED: OXYTOCIN 10 UNIT/ML 1 ML VIAL IM PRN (16:12)
[2021-04-03] MEDS ORDERED: LIDOCAINE 0.5% (PF) 5 MG/ML (50 ML SDV) SQ PRN (16:12)
[2021-04-03] MEDS ORDERED: CARBOPROST TROMETHAMINE 250 MCG/ML 1 ML AMP IM PRN (16:12)
[2021-04-03] MEDS ORDERED: DINOPROSTONE 10 MG INSERT.ER VAGINAL ONE (16:30)
[2021-04-03] MEDS: LACTATED RINGERS 1,000 ML IV SCH (18:20)
[2021-04-04] MEDS: LACTATED RINGERS 1,000 ML IV SCH ×4 (00:53→13:24)
[2021-04-04] MEDS: BUTORPHANOL 1 MG/ML 1 ML VIAL IV PRN ×4 (01:00→07:57)
[2021-04-04 01:32] LABS: Basophils % (A) 0 %; Eosinophils % (A) 1 %; HCT 32.3 % (34.0-46.0); HGB 10.7 gm/dL (11.4-16.0); Hypochromasia Slight; Lymphocytes # (A) 1.7 k/uL (1.0-4.8); Lymphocytes % (A) 25 %; MCH 26.9 pg (25.0-35.0); MCV 81.4 fL (80.0-100.0); Mean Platelet Volume 8.7; Monocytes # (A) 0.5 k/uL (0-1.0); Monocytes % (A) 8 %; Neutrophils # (A) 4.2 k/uL (1.3-7.7); Neutrophils % (A) 63 %; Platelet Count 305 k/uL (150-450); Poikilocytosis Slight; RBC 3.97 m/uL (3.80-5.40); RDW 14.6 % (11.5-15.5); WBC 6.7 k/uL (3.8-10.6)
[2021-04-04] MEDS ORDERED: OXYTOCIN 30 UNITS/500 ML NS 30 UNIT in SALINE 1 500ML.BAG IV SCH ×2 (05:15→15:00)
[2021-04-04] MEDS ORDERED: fentaNYL (PF) 50 MCG/ML 5 ML AMP ONE (08:54)
[2021-04-04] MEDS ORDERED: ROPIVACAINE 5MG/ML 20ML VIAL ONE (08:54)
[2021-04-04] MEDS ORDERED: SODIUM CHLORIDE 0.9% 100 ML BAG ONE (08:54)
[2021-04-04] MEDS ORDERED: CITRIC ACID-SODIUM CITRATE 15 ML CUP PO ONE (14:18)
[2021-04-04] MEDS ORDERED: MORPHINE SULFATE (PF) 0.3 MG/0.3 ML SYR ONE (14:28)
[2021-04-04] MEDS ORDERED: ONDANSETRON 4 MG/2 ML VIAL ONE (14:28)
[2021-04-04] MEDS ORDERED: KETOROLAC 15 MG/ML 1 ML VIAL ONE (14:28)
[2021-04-04] MEDS ORDERED: METOCLOPRAMIDE 5 MG/ML 2 ML VIAL IVP PRN (14:57)
[2021-04-04] MEDS ORDERED: LANOLIN CREAM 5 GM TUBE TOPICAL PRN (14:57)
[2021-04-04] MEDS ORDERED: ONDANSETRON 4 MG/2 ML VIAL IVP PRN (14:57)
[2021-04-04] MEDS ORDERED: NALOXONE 0.4 MG/ML 1 ML VIAL IV PRN (14:57)
[2021-04-04] MEDS ORDERED: diphenhydrAMINE 25 MG CAP PO PRN (14:57)
[2021-04-04] MEDS ORDERED: ZOLPIDEM 5 MG TAB PO PRN (14:57)
[2021-04-04] MEDS ORDERED: diphenhydrAMINE 50 MG/ML 1 ML VIAL IVP PRN ×2 (14:57)
[2021-04-04] MEDS ORDERED: SIMETHICONE 80 MG CHEWABLE PO PRN (14:57)
[2021-04-04] MEDS ORDERED: diphenhydrAMINE 50 MG CAP PO PRN (14:57)
[2021-04-04] MEDS: SENNOSIDES-DOCUSATE SODIUM 1 EACH TAB PO SCH (21:14)
[2021-04-05] MEDS ORDERED: KETOROLAC 15 MG/ML 1 ML VIAL IVP SCH
[2021-04-05] MEDS: IBUPROFEN 600 MG TAB PO SCH ×4 (05:03→19:11)
--- NOTE | 2021-04-05 05:08 | P.HPOB ---
History of Present Illness H&P Date: 04/03/21 Chief Complaint: induction of labor 30 years old presents at 39 weeks 6 days for induction of labor. Her cervix is closed/60/-2 and she is edy irregularly. heart tones 140 with moderate variability. Review of Systems All systems: negative Constitutional: Denies chills, Denies fever Eyes: denies blurred vision, denies pain Ears, nose, mouth and throat: Denies headache, Denies sore throat Cardiovascular: Denies chest pain, Denies shortness of breath Respiratory: Denies cough Gastrointestinal: Denies abdominal pain, Denies diarrhea, Denies nausea, Denies vomiting Genitourinary: Denies dysuria, Denies hematuria Musculoskeletal: Denies myalgias Integumentary: Denies pruritus, Denies rash Neurological: Denies numbness, Denies weakness Psychiatric: Denies anxiety, Denies depression Endocrine: Denies fatigue, Denies weight change Past Medical History Past Medical History: Fibromyalgia Additional Past Medical History / Comment(s): STATES HAVING BLOATING, CRAMPS DIARRHEA AND RECTAL BLEEDING., FREQUENT UTI'S. History of Any Multi-Drug Resistant Organisms: None Reported Additional Past Surgical History / Comment(s): EXPLORATORY WITH REMOVAL OF URACHAL CYST. (JANUARY 2015) Past Anesthesia/Blood Transfusion Reactions: No Reported Reaction, Motion Sickness Past Psychological History: Anxiety, Depression, PTSD Smoking Status: Never smoker Past Alcohol Use History: None Reported Past Drug Use History: Marijuana Additional Drug Use History / Comment(s): DENIES CURRENT MARIJUANA USE. - Past Family History Mother Family Medical History: No Reported History Additional Family Medical History / Comment(s): GRANDFATHER= COLON CANCER Medications and Allergies Home Medications Medication Instructions Recorded Confirmed Type 78/Iron/Folate 1/Dha 1 cap PO DAILY 04/03/21 04/03/21 History [Prenate Dha Softgel] Allergies Allergy/AdvReac Type Severity Reaction Status Date / Time Penicillins Allergy Anaphylaxis Verified 04/03/21 16:10 Exam Osteopathic Statement: *. No significant issues noted on an osteopathic structural exam other than those noted in the History and Physical/Consult. Vital Signs Temp Pulse Resp BP Pulse Ox 04/04/21 20:27 98.0 F 83 16 113/73 04/04/21 17:00 69 16 102/60 100 04/04/21 16:30 97.4 F L 66 16 101/58 100 04/04/21 16:00 63 16 100/60 100 04/04/21 15:58 16 04/04/21 15:45 86 16 92/57 100 04/04/21 15:30 93 16 114/54 100 04/04/21 15:15 90 16 97/52 99 04/04/21 15:00 97.4 F L 96 16 87/46 100 Intake and Output 04/04/21 04/04/21 04/05/21 14:59 22:59 06:59 Intake Total 250 Output Total 200 1575 Balance 50 -1575 Intake: IV 250 Output: Urine 200 1575 Uretheral ([place]) 1000 Other: Voiding Method Indwelling Catheter Heart: Regular rate and rhythm Lungs: Clear to auscultation bilaterally Abdomen: Soft, nontender Extremities: Negative Homans sign Results Result Diagrams: 04/04/21 01:00 Assessment and Plan (1) Encounter for induction of labor Current Visit: Yes Status: Acute Code(s): Z34.90 - ENCNTR FOR SUPRVSN OF NORMAL , UNSP, UNSP TRIMESTER SNOMED Code(s): 354193188 Plan: 1. Cervidil induction with Pitocin and amniotomy in the morning 2. Anticipate normal vaginal delivery
--- NOTE | 2021-04-05 05:12 | P.OP ---
Date of Procedure: 04/05/21 Preoperative Diagnosis: 1. 40 weeks 2. Repetitive variable decelerations in the heart rate Postoperative Diagnosis: 1. 40 weeks 2. Repetitive variable decelerations in the heart rate Procedure(s) Performed: Primary low transverse Anesthesia: epidural Surgeon: Aura Rodriguez Sew Out Operator #1: Raulito Bartlett Estimated Blood Loss (ml): 250 IV fluids (ml): 800 Urine output (ml): 200 Pathology: none sent Condition: stable Disposition: floor Indications for Procedure: 30-year-old presented at 39 weeks and 6 days for induction of labor. Her cervix was closed, 60% effaced, and -2 station. She is edy irregularly. heart tones 140 with moderate variability and reactive. Cervidil was placed in the morning she was 1-2 cm dilated, 60% effaced, -2 station. Amniotomy was performed at 7:31 AM and clear fluid noted. Pitocin 30 been started. When she was uncomfortable she did get an epidural. Soon after that the baby started having some issues with the heart tone's category 2 and unresolved with position changes and IV fluids. There were repetitive variable decelerations from 140 down to 80 with good return to baseline mirroring contractions. section was called after informed consent was obtained. Operative Findings: Viable male, Apgars 9, 9, weight 9 lbs. 7 oz. Normal uterus, tubes, ovaries. There was a 4 centimeter fibroid on the left broad ligament. Description of Procedure: Patient was taken to the operating room where spinal anesthesia was found be adequate. She was prepped and draped in normal sterile fashion in dorsal supine position with a leftward tilt. Pfannenstiel skin incision was made the scalpel and carried through to the underlying layer of fascia with the scalpel. Fascia was incised in midline and carried bilaterally with the Ro scissors. The superior aspect of the fascial incision was grasped with [place] clamps elevated and the underlying rectus muscles dissected off with the Ro's. Attention was then turned to inferior aspect of same incision which in a similar fashion was grasped tented up and the underlying rectus muscles dissected off with the Ro's. The rectus muscles were the midline and the peritoneum was identified tented up and entered sharply with the scalpel. The incision was extended superiorly and inferiorly with good visualization of the bladder. The bladder blade was inserted and the vesicouterine peritoneum was incised the [place] then carried bilaterally and bladder flap created digitally. A low transverse incision was then made on the uterus with the scalpel. This was carried bilaterally and digital manner. Infant's head delivered atraumatically, nose and mouth bulb suctioned, cord clamped and cut, handed off to waiting nurses. Apgars 9,9, weight 9 lbs. 7 oz. Placenta delivered manually, intact with three-vessel cord. The uterus is exteriorized and cleared of all clots and debris. The uterine incision was closed with 0 Vicryl in a running locked fashion. Second layer of the same sutures used in imbricating fashion to obtain excellent hemostasis. Bladder flap was then reapproximated using 2-0 Vicryl in a running fashion. Both ovaries and tubes appeared normal. The uterus was placed back into the abdomen. The peritoneum was reapproximated using 2-0 Vicryl in a running fashion. The muscles were reapproximated using 2- 0 Vicryl in interrupted fashion. The fascia was reapproximated using 0 Vicryl in a running fashion. The subcutaneous tissues closed with 3-0 Vicryl running fashion. The skin was closed patricia. Patient tolerated the procedure well, sponge and instrument counts were correct times 2 and she was taken to the recovery room in stable condition.
[2021-04-05 06:09] LABS: Basophils % (A) 0 %; Eosinophils % (A) 0 %; Hypochromasia Slight; Lymphocytes # (A) 1.3 k/uL (1.0-4.8); Lymphocytes % (A) 12 %; MCH 26.9 pg (25.0-35.0); MCHC 32.2 g/dL (31.0-37.0); MCV 83.5 fL (80.0-100.0); Mean Platelet Volume 9.6; Monocytes # (A) 0.5 k/uL (0-1.0); Monocytes % (A) 5 %; Neutrophils # (A) 8.7 k/uL (1.3-7.7); Neutrophils % (A) 81 %; Platelet Count 264 k/uL (150-450); RBC 3.72 m/uL (3.80-5.40); RDW 14.5 % (11.5-15.5); WBC 10.7 k/uL (3.8-10.6)
[2021-04-05] MEDS: ACETAMINOPHEN TAB 500 MG TAB PO SCH ×5 (08:35→21:08)
[2021-04-05] MEDS: SENNOSIDES-DOCUSATE SODIUM 1 EACH TAB PO SCH (08:57)
--- NOTE | 2021-04-05 10:54 | P.PN ---
Progress Note - Text 04/05/21 704am 80-year-old female status post with spinal Duramorph. Patient seen and evaluated this morning for postop pain control patient has a VAS of 7, with complaints of nausea vomiting postoperatively and pruritus. Nausea vomiting has subsided and have pruritus should get better by the end of the day.. Pain medication for postop pain control feeling better
[2021-04-06] MEDS: IBUPROFEN 600 MG TAB PO SCH ×5 (00:30→23:22)
[2021-04-06] MEDS: SENNOSIDES-DOCUSATE SODIUM 1 EACH TAB PO SCH ×3 (03:30→20:13)
[2021-04-06] MEDS: ACETAMINOPHEN TAB 500 MG TAB PO SCH (03:35)
--- NOTE | 2021-04-06 08:09 | P.PNOBGPC ---
Subjective - Subjective Principal diagnosis: S/P 1*LTCS POD #2 Interval history: Pt seen and examined. denies N/V, F/C, CP, SOB, calf pain. pain is not well controlled. Changing tylenol and oxycodone to norco to see if that helps. Patient reports: Reports appetite normal, Reports voiding normally, Reports pain well controlled, Reports ambulating normally [place]: doing well Objective - Vital Signs Latest vital signs: Vital Signs Temp Pulse Resp BP Pulse Ox 04/06/21 07:57 98.3 F 88 16 127/79 99 04/06/21 04:00 98.0 F 80 16 110/64 04/05/21 20:00 98.3 F 86 16 117/73 04/05/21 15:30 97.9 F 90 16 115/81 99 04/05/21 12:00 98.4 F 99 16 115/80 Intake and Output 04/05/21 04/06/21 04/06/21 22:59 06:59 14:59 Other: # Voids 1 2 1 - Exam Lungs: bilateral: normal Chest: Normal S1, Normal S2 Extremities: Present: normal Abdomen: Present: normal appearance, soft. Absent: distention, tenderness Incision: Present: normal, dry, intact Uterus: Present: normal, firm Assessment and Plan (1) Encounter for induction of labor Current Visit: Yes Status: Resolved Code(s): Z34.90 - ENCNTR FOR SUPRVSN OF NORMAL , UNSP, UNSP TRIMESTER SNOMED Code(s): 038576697 (2) Status post primary low transverse section Current Visit: Yes Status: Acute Code(s): Z98.891 - HISTORY OF UTERINE SCAR FROM PREVIOUS SURGERY SNOMED Code(s): 445879471 Plan: 1 cont po care 2. change pain meds
--- NOTE | 2021-04-06 08:10 | P.PNOBGPC ---
Subjective - Subjective Principal diagnosis: S/P 1*LTCS POD #1 Interval history: Pt seen and examined. Denies N/V, F/C, CP, SOB, calf pain. Patient reports: Reports appetite normal, Reports voiding normally, Reports pain well controlled, Reports ambulating normally [place]: doing well Objective - Vital Signs Latest vital signs: Vital Signs Temp Pulse Resp BP Pulse Ox 04/06/21 07:57 98.3 F 88 16 127/79 99 04/06/21 04:00 98.0 F 80 16 110/64 04/05/21 20:00 98.3 F 86 16 117/73 04/05/21 15:30 97.9 F 90 16 115/81 99 04/05/21 12:00 98.4 F 99 16 115/80 Intake and Output 04/05/21 04/06/21 04/06/21 22:59 06:59 14:59 Other: # Voids 1 2 1 - Exam Lungs: bilateral: normal Chest: Normal S1, Normal S2 Extremities: Present: normal Abdomen: Present: normal appearance, soft. Absent: distention, tenderness Incision: Present: normal, dry, intact Uterus: Present: normal, firm Assessment and Plan (1) Encounter for induction of labor Current Visit: Yes Status: Resolved Code(s): Z34.90 - ENCNTR FOR SUPRVSN OF NORMAL , UNSP, UNSP TRIMESTER SNOMED Code(s): 131569304 (2) Status post primary low transverse section Current Visit: Yes Status: Acute Code(s): Z98.891 - HISTORY OF UTERINE SCAR FROM PREVIOUS SURGERY SNOMED Code(s): 997763518 Plan: 1. cont po care
[2021-04-06] MEDS: HYDROcodone/APAP 7.5-325MG 1 EACH TAB PO PRN ×3 (09:06→20:13)
[2021-04-06 23:42] VITALS: RESP 16
[2021-04-07] MEDS: HYDROcodone/APAP 7.5-325MG 1 EACH TAB PO PRN ×2 (02:24→08:29)
[2021-04-07] MEDS: IBUPROFEN 600 MG TAB PO SCH ×2 (05:16→11:48)
--- NOTE | 2021-04-07 07:29 | P.DS ---
Providers Date of admission: 04/03/21 15:55 Expected date of discharge: 04/07/21 Attending physician: Aura Rodriguez Primary care physician: Stated None - Discharge Diagnosis(es) (1) Encounter for induction of labor Current Visit: Yes Status: Resolved (2) Status post primary low transverse section Current Visit: Yes Status: Acute Hospital Course: Pt presented for induction of labor. She underwent a primary low transverse c- section due to variables in the heart rate. She did very well post operatively. she is tolerating a reg diet, passing flatus and ambulating/voiding without difficulty. She will be discharged home POD 33 in stable condition to follow up with me in 1 week. Plan - Discharge Summary New Discharge Prescriptions: New Ibuprofen [Motrin] 600 mg PO Q6H #40 tab HYDROcodone/APAP 7.5-325MG [[place] 7.5-325] 1 each PO Q4-6H PRN #18 tab PRN Reason: Pain Continue 78/Iron/Folate 1/Dha [Prenate Dha Softgel] 1 cap PO DAILY Discharge Medication List 78/Iron/Folate 1/Dha [Prenate Dha Softgel] 1 cap PO DAILY 04/03/21 [History] HYDROcodone/APAP 7.5-325MG [[place] 7.5-325] 1 each PO Q4-6H PRN #18 tab 04/07/21 [Rx] Ibuprofen [Motrin] 600 mg PO Q6H #40 tab 04/07/21 [Rx] Follow up Appointment(s)/Referral(s): Aura Rodriguez DO [Doctor of Osteopathic Medicine] - 05/18/21 10:45 am (04-18-2021 09:00) Discharge Disposition: HOME SELF-CARE
[2021-04-07 08:11] VITALS: BP 114/68; PULSE 91; TEMP 98
== END 2021-04-07 11:50 | disposition home or self-care (01) | DRG 787 ==
LOC: 4FBP 15:55
PROVIDERS: ADMIT Obstetrics & Gynecology; ATTEND Obstetrics & Gynecology
PROC: 4A0HX4Z Measurement of Products of Conception, Cardiac Electrical Activity, External Approach (ICD-10-PCS; 2021-04-04)
PROC: 10907ZC Drainage of Amniotic Fluid, Therapeutic from Products of Conception, Via Natural or Artificial Opening (ICD-10-PCS; 2021-04-04)
PROC: 3E0P7VZ Introduction of Hormone into Female Reproductive, Via Natural or Artificial Opening (ICD-10-PCS; 2021-04-04)
PROC: 3E033VJ Introduction of Other Hormone into Peripheral Vein, Percutaneous Approach (ICD-10-PCS; 2021-04-04)
PROC: 10D00Z1 Extraction of Products of Conception, Low, Open Approach (ICD-10-PCS; principal; 2021-04-04 14:31)
DX: O76 Abnormality in fetal heart rate and rhythm complicating labor and delivery (principal); O99.354 Diseases of the nervous system complicating childbirth; M79.7 Fibromyalgia; O99.344 Other mental disorders complicating childbirth; L29.9 Pruritus, unspecified; O99.73 Diseases of the skin and subcutaneous tissue complicating the puerperium; F32.9 Major depressive disorder, single episode, unspecified; F43.10 Post-traumatic stress disorder, unspecified; Z37.0 Single live birth; Z3A.39 39 weeks gestation of pregnancy; Z87.440 Personal history of urinary (tract) infections; Z88.0 Allergy status to penicillin
CPT/HCPCS: 85025; 86850; 86900; 86901

== ENCOUNTER 2022-03-24 21:00 | Emergency (ER) | payer OTHER ==
[2022-03-24 21:19] VITALS: TEMP 98
[2022-03-24] MEDS ORDERED: diphenhydrAMINE 50 MG/ML 1 ML VIAL IVP STA (22:37)
[2022-03-24] MEDS ORDERED: SODIUM CHLORIDE 0.9% 1,000 ML IV ONE ×2 (22:37→23:54)
[2022-03-24 22:58] LABS: Basophils % (A) 0 %; Eosinophils % (A) 0 %; HGB 14.1 gm/dL (11.4-16.0); Lymphocytes # (A) 1.1 k/uL (1.0-4.8); Lymphocytes % (A) 10 %; MCH 28.3 pg (25.0-35.0); MCHC 31.9 g/dL (31.0-37.0); MCV 88.5 fL (80.0-100.0); Monocytes # (A) 0.3 k/uL (0-1.0); Monocytes % (A) 3 %; Neutrophils # (A) 9.3 k/uL (1.3-7.7); Neutrophils % (A) 87 %; Platelet Count 303 k/uL (150-450); RBC 4.97 m/uL (3.80-5.40); RDW 13.9 % (11.5-15.5); WBC 10.7 k/uL (3.8-10.6)
[2022-03-24 23:08] LABS: Appearance,Urine Clear (Clear); Bacteria,Urine Rare /hpf; Bilirubin,Urine Negative (Negative); Blood,Urine Negative (Negative); Color,Urine Yellow; Glucose,Urine (UA) Negative (Negative); Ketones,Urine 4+ (Negative); Leukocyte Esterase,Urine Negative (Negative); Mucus,Urine Moderate /hpf; Nitrite,Urine Negative (Negative); Protein,Urine 1+ (Negative); RBC,Urine 4 /hpf (0-5); Specific Gravity,Urine 1.029 (1.001-1.035); Squamous Epithelial Cell,Urine 2 /hpf (0-4); Urobilinogen,Urine <2.0 mg/dL (<2.0); WBC,Urine 3 /hpf (0-5)
[2022-03-24 23:11] LABS: ALT 19 U/L (4-34); AST 26 U/L (14-36); African American GFR (CKD) >90 (>60 ml/min/1.73 sqM); Albumin 5.6 g/dL (3.5-5.0); Alkaline Phosphatase 73 U/L (38-126); Anion Gap 14 mmol/L; Blood Urea Nitrogen 13 mg/dL (7-17); Calcium 10.2 mg/dL (8.4-10.2); Carbon Dioxide 25 mmol/L (22-30); Chloride 101 mmol/L (98-107); Glucose 135 mg/dL (74-99); Non-African American GFR(CKD) >90 (>60 ml/min/1.73 sqM); Sodium 140 mmol/L (137-145); Total Bilirubin 0.9 mg/dL (0.2-1.3); Total Protein 9.1 g/dL (6.3-8.2)
--- NOTE | 2022-03-25 00:09 | ED ---
General Adult HPI - General Chief complaint: Recheck/Abnormal Lab/Rx Stated complaint: Medication issue Time Seen by Provider: 03/24/22 21:37 Source: patient Mode of arrival: ambulatory - History of Present Illness Initial comments: 31-year-old female who presents to the emergency department with tremors, nausea and vomiting. She started Cymbalta 60 mg this morning for PTSD. Was on the medication previously however got and was taken off of the medication. Her PTSD has been getting worse and therefore she was started back on this medication today by her psychiatrist. States that she took one dose and got hot flashes, blurred vision, tremors. States his extremely fatigued and confused. She went online and saw that she could have serotonin syndrome and therefore came into the emergency room for evaluation. Denies any recent illnesses. No sick contacts. Denies taking any other medications including vitamins and [id number] medications. No fevers. 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 ROS Other: All systems not noted in ROS Statement are negative. Past Medical History Past Medical History: Fibromyalgia Additional Past Medical History / Comment(s): STATES HAVING BLOATING, CRAMPS DIARRHEA AND RECTAL BLEEDING., FREQUENT UTI'S. History of Any Multi-Drug Resistant Organisms: None Reported Past Surgical History: Section Additional Past Surgical History / Comment(s): EXPLORATORY WITH REMOVAL OF U LIZA CYST. (JANUARY 2015) Past Anesthesia/Blood Transfusion Reactions: No Reported Reaction, Motion Sickness Past Psychological History: Anxiety, Depression, PTSD Smoking Status: Never smoker Past Alcohol Use History: None Reported Past Drug Use History: Marijuana - Past Family History Mother Family Medical History: No Reported History Additional Family Medical History / Comment(s): GRANDFATHER= COLON CANCER General Exam General appearance: alert, in no apparent distress Head exam: Present: atraumatic, normocephalic, normal inspection Eye exam: Present: normal appearance, PERRL, EOMI. Absent: scleral icterus, conjunctival injection, periorbital swelling ENT exam: Present: normal exam, mucous membranes moist Neck exam: Present: normal inspection. Absent: tenderness, meningismus, lymphadenopathy Respiratory exam: Present: normal lung sounds bilaterally. Absent: respiratory distress, wheezes, rales, rhonchi, stridor Cardiovascular Exam: Present: normal rhythm, bradycardia, normal heart sounds. Absent: systolic murmur, diastolic murmur, rubs, gallop, clicks GI/Abdominal exam: Present: soft, normal bowel sounds. Absent: distended, tenderness, guarding, rebound, rigid Extremities exam: Present: normal inspection, full ROM, normal capillary refill. Absent: tenderness, pedal edema, joint swelling, calf tenderness Back exam: Present: normal inspection Neurological exam: Present: alert, oriented X3, CN II-XII intact Psychiatric exam: Present: normal affect, normal mood Skin exam: Present: warm, dry, intact, normal color. Absent: rash Course Vital Signs 03/24/22 03/25/22 21:15 00:54 Temperature 98 F Pulse Rate 54 L 85 Respiratory 19 16 Rate Blood Pressure 112/45 109/67 O2 Sat by Pulse 97 100 Oximetry Medical Decision Making - Medical Decision Making Upon arrival patient was placed in room 6. A thorough history and physical exam was performed IV access is established the patient was given 2 L of normal s gurvinder. She is also given Benadryl for nausea. Laboratory studies were conducted. She does have 4+ ketones in the urine. Patient is reevaluated and reports improvement in her symptoms area patient's stable for discharge home. Instructed to talk to her psychiatrist about changing the medication. Instructed to not take any more doses and asked for alternatives. Patient understood and was discharged home in stable condition - Lab Data Result diagrams: 03/24/22 22:07 03/24/22 22:07 Lab Results 03/24/22 03/24/22 03/24/22 Range/Units 22:07 22:07 22:35 WBC 10.7 H (3.8-10.6) k/uL RBC 4.97 (3.80-5.40) m/uL Hgb 14.1 (11.4-16.0) gm/dL Hct 44.0 (34.0-46.0) % MCV 88.5 (80.0-100.0) fL MCH 28.3 (25.0-35.0) pg MCHC 31.9 (31.0-37.0) g/dL RDW 13.9 (11.5-15.5) % Plt Count 303 (150-450) k/uL MPV 8.0 Neutrophils % 87 % Lymphocytes % 10 % Monocytes % 3 % Eosinophils % 0 % Basophils % 0 % Neutrophils # 9.3 H (1.3-7.7) k/uL Lymphocytes # 1.1 (1.0-4.8) k/uL Monocytes # 0.3 (0-1.0) k/uL Eosinophils # 0.0 (0-0.7) k/uL Basophils # 0.0 (0-0.2) k/uL Sodium 140 (137-145) mmol/L Potassium 4.0 (3.5-5.1) mmol/L Chloride 101 (98-107) mmol/L Carbon Dioxide 25 (22-30) mmol/L Anion Gap 14 mmol/L BUN 13 (7-17) mg/dL Creatinine 0.65 (0.52-1.04) mg/dL Est GFR (CKD-EPI)AfAm >90 (>60 ml/min/1.73 sqM) Est GFR (CKD-EPI)NonAf >90 (>60 ml/min/1.73 sqM) Glucose 135 H (74-99) mg/dL Calcium 10.2 (8.4-10.2) mg/dL Total Bilirubin 0.9 (0.2-1.3) mg/dL AST 26 (14-36) U/L ALT 19 (4-34) U/L Alkaline Phosphatase 73 (38-126) U/L Total Protein 9.1 H (6.3-8.2) g/dL Albumin 5.6 H (3.5-5.0) g/dL Urine Color Yellow Urine Appearance Clear (Clear) Urine pH 6.0 (5.0-8.0) Ur Specific [place] 1.029 (1.001-1.035) Urine Protein 1+ H (Negative) Urine Glucose (UA) Negative (Negative) Urine Ketones 4+ H (Negative) Urine Blood Negative (Negative) Urine Nitrite Negative (Negative) Urine Bilirubin Negative (Negative) Urine Urobilinogen <2.0 (<2.0) mg/dL Ur Leukocyte Esterase Negative (Negative) Urine RBC 4 (0-5) /hpf Urine WBC 3 (0-5) /hpf Ur Squamous Epith Cells 2 (0-4) /hpf Urine Bacteria Rare H (None) /hpf Urine Mucus Moderate H (None) /hpf Urine HCG, Qual (Not Detectd) 03/24/22 Range/Units 22:35 WBC (3.8-10.6) k/uL RBC (3.80-5.40) m/uL Hgb (11.4-16.0) gm/dL Hct (34.0-46.0) % MCV (80.0-100.0) fL MCH (25.0-35.0) pg MCHC (31.0-37.0) g/dL RDW (11.5-15.5) % Plt Count (150-450) k/uL MPV Neutrophils % % Lymphocytes % % Monocytes % % Eosinophils % % Basophils % % Neutrophils # (1.3-7.7) k/uL Lymphocytes # (1.0-4.8) k/uL Monocytes # (0-1.0) k/uL Eosinophils # (0-0.7) k/uL Basophils # (0-0.2) k/uL Sodium (137-145) mmol/L Potassium (3.5-5.1) mmol/L Chloride (98-107) mmol/L Carbon Dioxide (22-30) mmol/L Anion Gap mmol/L BUN (7-17) mg/dL Creatinine (0.52-1.04) mg/dL Est GFR (CKD-EPI)AfAm (>60 ml/min/1.73 sqM) Est GFR (CKD-EPI)NonAf (>60 ml/min/1.73 sqM) Glucose (74-99) mg/dL Calcium (8.4-10.2) mg/dL Total Bilirubin (0.2-1.3) mg/dL AST (14-36) U/L ALT (4-34) U/L Alkaline Phosphatase (38-126) U/L Total Protein (6.3-8.2) g/dL Albumin (3.5-5.0) g/dL Urine Color Urine Appearance (Clear) Urine pH (5.0-8.0) Ur Specific [place] (1.001-1.035) Urine Protein (Negative) Urine Glucose (UA) (Negative) Urine Ketones (Negative) Urine Blood (Negative) Urine Nitrite (Negative) Urine Bilirubin (Negative) Urine Urobilinogen (<2.0) mg/dL Ur Leukocyte Esterase (Negative) Urine RBC (0-5) /hpf Urine WBC (0-5) /hpf Ur Squamous Epith Cells (0-4) /hpf Urine Bacteria (None) /hpf Urine Mucus (None) /hpf Urine HCG, Qual Not Detected (Not Detectd) Disposition Clinical Impression: Tremors of nervous system, Medication side effect, Ketonuria, Nausea & vomiting Disposition: HOME SELF-CARE Condition: Stable Instructions (If sedation given, give patient instructions): Dehydration (ED) Additional Instructions: Stopp taking the medication and call your doctor to talk about alternatives. Return to the ED for any new or worsening symptoms Is patient prescribed a controlled substance at d/c from ED?: No Referrals: [facility],Clinic [Primary Care Provider] - 1-2 days Time of Disposition: 00:09
[2022-03-25 00:55] VITALS: BP 109/67; PULSE 85; RESP 16
== END 2022-03-25 00:55 | disposition home or self-care (01) ==
LOC: EC 21:00
DX: R25.1 Tremor, unspecified (principal); R11.2 Nausea with vomiting, unspecified; T43.215A Adverse effect of selective serotonin and norepinephrine reuptake inhibitors, initial encounter; R82.4 Acetonuria; Z88.0 Allergy status to penicillin
CPT/HCPCS: 36415; 93005; 80053; 85025; 81001; 81025; 99284; 96374; 96361 ×2; J1200

== ENCOUNTER 2023-06-05 11:41 | Emergency (ER) | payer OTHER ==
[2023-06-05 11:57] VITALS: BP 115/79; PULSE 95; RESP 16; TEMP 98
--- NOTE | 2023-06-05 12:25 | XR ---
EXAMINATION TYPE: XR nasal bone DATE OF EXAM: 06/05/2023 CLINICAL HISTORY: pain TECHNIQUE: 3 views of the nasal bones are submitted. FINDINGS: Three views of the nasal bones fail to demonstrate evidence for displaced or depressed nasal bone fra cture. Paranasal sinuses are well-aerated. IMPRESSION: No evidence for displaced or depressed nasal bone fracture. ICD 10 NO FRACTURE, INITIAL EVALUATION
--- NOTE | 2023-06-05 12:57 | ED ---
ENT HPI - General Chief complaint: ENT Stated complaint: nose injury Time Seen by Provider: 06/05/23 11:50 Source: patient, RN notes reviewed Mode of arrival: ambulatory Limitations: no limitations - History of Present Illness Initial comments: This is a 33-year-old female who presents to the emergency department for nasal pain. States that her son fell on top of her and his head hit her in the nose last night. She developed bleeding out of the right nostril shortly afterwards. She feels like her nose looks crooked and she is concerned that she may have broken it. She does report prior surgery for a deviated septum and nasal fracture. He has not had any bleeding from the nose today. Not taking any blood thinners. Denies any fevers, chills, sore throat, cough, dyspnea, chest pain, palpitations, abdominal pain, nausea, vomiting, diarrhea, or back pain. MD complaint: other (nasal pain) - Related Data Home Medications Medication Instructions Recorded Confirmed 78/Iron/Folate 1/Dha 1 cap PO DAILY 04/03/21 04/03/21 [Prenate Dha Softgel] Previous Rx's Medication Instructions Recorded HYDROcodone/APAP 7.5-325MG [[place] 1 each PO Q4-6H PRN #18 tab 04/07/21 7.5-325] Ibuprofen [Motrin] 600 mg PO Q6H #40 tab 04/07/21 Allergies Allergy/AdvReac Type Severity Reaction Status Date / Time Penicillins Allergy Anaphylaxis Verified 06/05/23 11:49 Review of Systems ROS Statement: Those systems with pertinent positive or pertinent negative responses have been documented in the HPI. ROS Other: All systems not noted in ROS Statement are negative. Past Medical History Past Medical History: Fibromyalgia Additional Past Medical History / Comment(s): STATES HAVING BLOATING, CRAMPS DIARRHEA AND RECTAL BLEEDING., FREQUENT UTI'S. History of Any Multi-Drug Resistant Organisms: None Reported Past Surgical History: Section Additional Past Surgical History / Comment(s): EXPLORATORY WITH REMOVAL OF URACHAL CYST. (JANUARY 2015) Past Anesthesia/Blood Transfusion Reactions: No Reported Reaction, Motion Sickness Past Psychological History: Anxiety, Depression, PTSD Smoking Status: Never smoker Past Alcohol Use History: None Reported Past Drug Use History: Marijuana - Past Family History Mother Family Medical History: No Reported History Additional Family Medical History / Comment(s): GRANDFATHER= COLON CANCER General Exam Limitations: no limitations General appearance: alert, in no apparent distress Head exam: Present: atraumatic, normocephalic, normal inspection ENT exam: Present: other (Minor tenderness to palpation over the nasal bridge. No septal hematoma. No bleeding or evidence of recent active bleeding. There is also no swelling or ecchymosis to the nose.) Respiratory exam: Present: normal lung sounds bilaterally. Absent: respiratory distress, wheezes, rales, rhonchi, stridor Cardiovascular Exam: Present: regular rate, normal rhythm, normal heart sounds. Absent: systolic murmur, diastolic murmur, rubs, gallop, clicks Neurological exam: Present: alert, oriented X3, CN II-XII intact Psychiatric exam: Present: normal affect, normal mood Course Vital Signs 06/05/23 11:46 Temperature 98 F Pulse Rate 95 Respiratory 16 Rate Blood Pressure 115/79 O2 Sat by Pulse 98 Oximetry Medical Decision Making - Medical Decision Making This is a 33-year-old female who presents to the emergency department for a nasal bone injury. Was pt. sent in by a medical professional or institution? @ -No Did you speak to anyone other than the patient for history? @ -No Did you review nursing and triage notes? @ -Yes, and I agree, it is accurate with regards to the patient's symptoms. Were old charts reviewed? @ -No Differential Diagnosis? @ -Differential Nose Pain/Injury: Fracture, contusion, epistaxis, septal hematoma, this is not meant to be an all- inclusive list. EKG interpreted by me (3pts min.)? @ -Not obtained X-rays interpreted by me (1pt min.)? @ -X-ray of the nasal bones obtained. My interpretation identifies no acute fractures. CT interpreted by me (1pt min.)? @ -Not obtained U/S interpreted by me (1pt. min.)? @ -Not obtained What testing was considered but not performed? (CT, X-rays, U/S, labs)? Why? @ -None What meds were considered but not given? Why? @ -None Did you discuss the management of the patient with other professionals? @ -No Did you reconcile home meds? @ -No Was smoking cessation discussed for >3mins.? @ -No Was critical care preformed (if so, how long)? @ -No Were there social determinants of health that impacted care today? How? (Homelessness, low income, unemployed, alcoholism, drug addiction, transportation, low edu. Level, literacy, decrease access to med. care, long-term, rehab)? @ -No Was there de-escalation of care discussed even if they declined? (Discuss DNR or withdrawal of care, Hospice)? @ -No What co-morbidities impacted this encounter? (DM, HTN, Smoking, COPD, CAD, Cancer, CVA, Hep., AIDS, mental health diagnosis, sleep apnea, morbid obesity)? @ -None Was patient admitted / discharged? @ -Discharged. X-ray of the nasal bones obtained revealing no acute process. Advised the patient that this does not rule out a potential hairline fracture. Nose blowing precautions were reviewed. Advised ibuprofen and Tylenol as needed for pain relief and close follow-up with her primary care provider for reevaluation. Undiagnosed new problem with uncertain prognosis? @ -None Drug Therapy requiring intensive monitoring for toxicity (Heparin, Nitro, Insulin, Cardizem)? @ -None Were any procedures done? @ -None Diagnosis/symptom? @ -Nasal contusion Acute, or Chronic, or Acute on Chronic? @ -Acute Uncomplicated (without systemic symptoms) or Complicated (systemic symptoms)? @ -Uncomplicated Side effects of treatment? @ -None Exacerbation, Progression, or Severe Exacerbation] @ -Not applicable Poses a threat to life or bodily function? @ -No Return precautions reviewed in depth, the patient is instructed to return to the emergency department with any new, worsening, or concerning symptoms. Patient verbalized understanding. This case was discussed in detail with the attending ED physician, Dr. Perez. Presentation, findings, and treatment plan discussed in detail as well. - Radiology Data Radiology results: report reviewed, image reviewed Disposition Clinical Impression: Nasal contusion Disposition: HOME SELF-CARE Additional Instructions: Return to the emergency department with any new, worsening, or concerning symptoms. Alternate with ibuprofen and Tylenol as needed for pain relief. Try to avoid blowing your nose for the meantime, as this may worsen symptoms. Follow up with your primary care provider in 1-2 days. Is patient prescribed a controlled substance at d/c from ED?: No Referrals: Lyric Dong MD [Primary Care Provider] - 1-2 days
== END 2023-06-05 13:22 | disposition home or self-care (01) ==
LOC: EC 11:41
DX: S00.33XA Contusion of nose, initial encounter (principal); F12.90 Cannabis use, unspecified, uncomplicated; Z86.59 Personal history of other mental and behavioral disorders; W22.8XXA Striking against or struck by other objects, initial encounter; Z88.0 Allergy status to penicillin
CPT/HCPCS: 70160; 99283

== ENCOUNTER → 2023-11-08 | Outpatient (CLI) | payer OTHER ==
--- NOTE | 2023-11-08 12:57 | CT ---
EXAMINATION TYPE: CT sinus wo con DATE OF EXAM: 11/08/2023 COMPARISON: None available. HISTORY: Pt had sx to fix deviated septum, had trauma to nose in June and has had sinusitis, pain, RT ear pressure and migraines since. CT DLP: 504.50 mGycm. Automated Exposure Control for Dose Reduction was Utilized. TECHNIQUE: CT scan of the sinuses is performed without contrast, axial images are obtained, coronal r eformatted images are also reviewed. FINDINGS: The paranasal sinuses including the frontal, ethmoid, sphenoid, and maxillary sinuses bila terally are well-aerated without abnormal opacification. There appears to have been some prior surgic al changes within the right ethmoid air cells and possibly the left ethmoid air cells as well. The os tiomeatal complex is patent bilaterally on the coronal images. Visualized portion of mastoid air cells show no abnormal opacification. The globes are intact bilate rally. IMPRESSION: The sinuses are clear and the ostiomeatal complex is patent bilaterally.
== END | disposition home or self-care (01) ==
LOC: RADCTMAIN 12:20
DX: J32.9 Chronic sinusitis, unspecified (principal); J34.2 Deviated nasal septum; G43.909 Migraine, unspecified, not intractable, without status migrainosus
CPT/HCPCS: 70486